=== PATIENT | female | born 1965 | race Caucasian/White ===

== ENCOUNTER → 2023-12-16 14:29 | Outpatient (REF) | payer BC, SELFPAY | LOC: WDC 14:29 | PROVIDERS: ATTENDING PHYSICIAN Nurse Practitioner Primary Care | DX: Z12.31 Encounter for screening mammogram for malignant neoplasm of breast (principal) | CPT/HCPCS: 77063; 77067 ==

== ENCOUNTER → 2024-01-17 10:12 | Outpatient (REF) | payer BC, SELFPAY | LOC: WDC 10:12 | PROVIDERS: ATTENDING PHYSICIAN Nurse Practitioner Primary Care | DX: R92.8 Other abnormal and inconclusive findings on diagnostic imaging of breast (principal) | CPT/HCPCS: 76642 ==